=== PATIENT | female | born 1930 | race Caucasian/White ===

== ENCOUNTER 2017-07-04 15:20 | Emergency (ER) | payer OTHER, BC ==
[~2017-07-04] VITALS: Ht 175.3 cm; Wt 78.1 kg
[2017-07-04 15:29] VITALS: TEMP 36.6; Ht 175.3 cm; Wt 78.1 kg
--- NOTE | 2017-07-04 16:03 | DIAGNOSTIC IMAGING REPORT ---
HEAD WITHOUT CONTRAST (CT) CLINICAL HISTORY: 86 years-old Female with fall, head injury, facial contusions. Acute head injury status post fall TECHNIQUE: Multiple axial CT images of the head were obtained without contrast. A dose lowering technique was utilized adhering to the principles of ALARA. CT DOSE: 788.63 mGycm COMPARISON: CT maxillofacial same day. FINDINGS: No acute intracranial hemorrhage, midline shift, intracranial mass, hydrocephalus, territorial ischemia or abnormal extra-axial collection. Moderate atrophy with moderate degree of ill-defined low-attenuation within the white matter of the cerebral hemispheres bilaterally suggesting chronic microvascular ischemic changes. Senescent calcifications of the basal ganglia. Cerebral vascular calcifications are seen at the level of the skull base. The calvarium is intact. The paranasal sinuses, mastoid air cells, and middle ear cavities are clear. Acute fracture of the left orbital floor is noted along with acute fracture of the left anterior nasal process and medial wall of the right maxillary sinus. Layering blood products are seen within the bilateral maxillary and ethmoid sinuses. Acute fracture of the posterior left maxillary wall also noted. IMPRESSION: 1. No acute intracranial abnormality or calvarial fracture. 2. Multiple facial bone fractures as above with layering hemorrhage within the paranasal sinuses.. Please see CT maxillofacial study of same day for further details. The above report was generated using voice recognition software. It may contain grammatical, syntax or spelling errors. Electronically signed by: Eldon Gross M.D. 07/04/2017 4:02 PM Dictated Date/Time: 07/04/2017 3:58 PM
--- NOTE | 2017-07-04 16:12 | DIAGNOSTIC IMAGING REPORT ---
FACIAL BONES-MXILLOFAC WITHOUT CLINICAL HISTORY: 86 years-old Female presenting with fall, head injury, facial contusions. TECHNIQUE: Multidetector CT of the face was performed without the use of intravenous contrast. IV contrast: None. A dose lowering technique was used consistent with the principles of ALARA (as low as reasonably achievable). COMPARISON: None. CT DOSE (mGy.cm): The estimated cumulative dose is 561.29 mGycm. FINDINGS: Paper Folding Machine Operator topogram: Unremarkable. Left premaxillary and left periorbital soft tissue swelling and subcutaneous infiltration consistent with contusion. Hyperdensity aerated and layering fluid noted in the bilateral maxillary sinuses. Similar fluid also noted to a lesser extent in left ethmoid air cells. This consistent with hemorrhage by density. Degenerative changes of the temporomandibular joints, which remain congruent. No mandibular fracture. Deviation of the bony nasal septum, which may be chronic. Bilateral fractures of the pterygoid plates, which are more comminuted on the left. Bilateral [place] lenses are absent. Small amount of left intraorbital extraconal hematoma. No herniation of intraorbital fat inferiorly though slight herniation of orbital fat is noted medially. Inferior and medial left orbital fractures. No significant deformation of the intraorbital muscles. Mildly comminuted fractures of the anterior, lateral, and medial left maxillary sinus avelar. The piriform aperture is fractured on the right Minimally displaced fracture of the lateral and anterior avelar of the right maxillary sinus. Limited intracranial violation demonstrates age-related volume loss and chronic small vessel ischemic change. IMPRESSION: 1. Findings consistent with right fátima-LeFort type I and left fátima-LeFort type II facial fractures. 2. Left medial and inferior orbital fractures with herniation of medial fat. No deformation of the intraorbital muscles to suggest entrapment. Correlate clinically. Small left intraorbital hematoma. 3. Extensive hemorrhage in the maxillary sinuses. Electronically signed by: Bc Curry M.D. 07/04/2017 4:11 PM Dictated Date/Time: 07/04/2017 4:00 PM
[2017-07-04] MEDS ORDERED: OMEP-334 PO (17:04)
[2017-07-04] MEDS ORDERED: ASPI81TA28 PO (17:04)
[2017-07-04] MEDS ORDERED: RIVA1.5T PO (17:04)
[2017-07-04] MEDS ORDERED: METO100T44 PO (17:04)
[2017-07-04] MEDS ORDERED: HYZ/10015 PO (17:04)
[2017-07-04] MEDS ORDERED: AMLO2.5T PO (17:04)
[2017-07-04] MEDS ORDERED: LEVO125T5 PO (17:04)
[2017-07-04] MEDS ORDERED: CTP/1 PO (17:04)
[2017-07-04] MEDS ORDERED: ATOR10TA82 PO (17:04)
[2017-07-04] MEDS ORDERED: CALC1CAP36 PO (17:04)
[2017-07-04] MEDS ORDERED: LIDOCAINE 1% BUFFERED INJ 5 ML VIAL INFIL ONE (17:30)
--- NOTE | 2017-07-04 18:22 | EMERGENCY ROOM VISIT NOTE ---
ED Visit Note First contact with patient: 15:27 Patient was seen by our PA/STAFFING RN. I was involved in the patient's care and did evaluate the patient myself. I was involved in the care throughout the ER stay. Patient presents after falling. She does not have evidence for intracranial bleeding by CT. There are facial fractures noted. Her face is contused and she has a slight amount of bleeding from her nose. The facial films were reviewed by the maxillofacial surgeon speech correction consultant. Patient was felt stable for discharge. She did want to follow-up in her hometown, she is visiting the [place] area. She will be discharged on Augmentin. Her blood pressure is high here but she is worried. She also missed her nighttime blood pressure medication. She is on Xarelto and will be holding this medication for several days to lessen her chance of bleeding.
[2017-07-04] MEDS ORDERED: NORCO 5/325MG HOME PACK PO ONE (18:45)
[2017-07-04] MEDS ORDERED: AMOXICIL/CLAVU 875MG HOME PACK PO ONE (18:45)
[2017-07-04] MEDS ORDERED: AMOX875T PO ×2 (19:21→19:27)
[2017-07-04] MEDS ORDERED: HYDR-5688 PO (19:21)
--- NOTE | 2017-07-04 19:28 | EMERGENCY ROOM VISIT NOTE ---
History First contact with patient: 15:27 Chief Complaint: FALL Stated Complaint: Tripped/fall, facial contusion/nose bleed History of Present Illness The patient is a 86 year old female who presents to the Emergency Room via BLS with complaints of a fall and facial injuries. The patient states that she was walking downtown when she tripped over an uneven area of sidewalk and fell, striking her face. She did not lose consciousness. The fall was mechanical and not associated with any dizziness/lightheadedness. The patient had initially a large amount of bleeding from the nose. She states that that has slowed down. She now has swelling surrounding the left eye. She rates her overall discomfort a 1/10. She describes her pain as dull. She denies any neck pain. She denies any vision changes or difficulty opening her mouth. She denies any other injuries. She does take Xarelto for a history of A fib. Her tetanus is up-to-date. Review of Systems A complete 10 point review of systems was reviewed with the patient with pertinent positives and negatives as per history of present illness. All else were negative. Past Medical/Surgical History Medical Problems: (1) Atrial fibrillation (2) Hypertension Social History Smoking Status: Never Smoker Housing Status: lives with family Current/Historical Medications Scheduled Amlodipine (Norvasc), 2.5 MG PO BID Amoxicillin & Pot Clavulanate (Augmentin 875-125 mg), 1 TAB PO BID Aspirin (Aspirin Ec), 81 MG PO 2XWK Atorvastatin (Lipitor), 10 MG PO HS Calcitriol (Calcitriol), 0.25 MCG PO Q2D Clonidine Hcl (Catapres), 0.1 MG PO TID Hctz/Losartan (Hyzaar 25MG/100MG), 1 TAB PO DAILY Levothyroxine Sodium (Levothyroxine Sodium), 125 MCG PO DAILY Metoprolol Succ (Toprol Xl) (Toprol-Xl ), 100 MG PO BID Omeprazole (Omeprazole Dr), 40 MG PO DAILY Rivaroxaban (Xarelto), 15 MG PO QDD Scheduled PRN Hydrocodone/Acetaminophen 5MG/325MG (Arabi 5MG/325MG), 1 TABLET PO Q4H PRN for Pain Physical Exam Vital Signs Date Time Temp Pulse Resp B/P (MAP) Pulse Ox O2 Delivery O2 Flow Rate FiO2 07/04/17 20:02 93 16 178/101 95 07/04/17 18:51 89 16 183/109 93 Room Air 07/04/17 17:06 88 20 224/102 94 Room Air 07/04/17 16:34 93 18 226/125 94 Room Air 07/04/17 15:29 36.6 87 18 202/113 92 Room Air Physical Exam VITALS: Vitals are noted on the nurse's note and reviewed by myself. GENERAL: This is an 86-year-old female, in no acute distress, well-developed well-nourished. SKIN: Significant soft tissue swelling noted to the left periorbital region. There is a 2 cm laceration to the left upper lip with mild active bleeding. HEAD: Normocephalic atraumatic. EARS: External auditory canals clear, tympanic membranes pearly luz without erythema or effusion bilaterally. No hemotympanum. EYES: Left periorbital edema and ecchymosis. Pupils equal round and reactive to light and accommodation. Extraocular movements intact. NOSE: No obvious deformity. No active bleeding from the nose. Small amount of dried blood in the right nare. MOUTH: Left upper front tooth is chipped. Upper lip laceration as described in the skin section. NECK: Supple without nuchal rigidity. Cervical spine is nontender. HEART: Regular rate and rhythm without murmurs gallops or rubs. LUNGS: Clear to auscultation bilaterally without wheezes, rales or rhonchi. MUSCULOSKELETAL: Strength 5/5 throughout. NEURO: Patient was alert and oriented to person place and time. No focal neurological deficits. Medical Decision & Procedures ER Provider Diagnostic Interpretation: HEAD WITHOUT CONTRAST (CT) IMPRESSION: 1. No acute intracranial abnormality or calvarial fracture. 2. Multiple facial bone fractures as above with layering hemorrhage within the paranasal sinuses.. Please see CT maxillofacial study of same day for further details. FACIAL BONES-MXILLOFAC WITHOUT FINDINGS: Rivet Hammer Machine Operator topogram: Unremarkable. Left premaxillary and left periorbital soft tissue swelling and subcutaneous infiltration consistent with contusion. Hyperdensity aerated and layering fluid noted in the bilateral maxillary sinuses. Similar fluid also noted to a lesser extent in left ethmoid air cells. This consistent with hemorrhage by density. Degenerative changes of the temporomandibular joints, which remain congruent. No mandibular fracture. Deviation of the bony nasal septum, which may be chronic. Bilateral fractures of the pterygoid plates, which are more comminuted on the left. Bilateral [place] lenses are absent. Small amount of left intraorbital extraconal hematoma. No herniation of intraorbital fat inferiorly though slight herniation of orbital fat is noted medially. Inferior and medial left orbital fractures. No significant deformation of the intraorbital muscles. Mildly comminuted fractures of the anterior, lateral, and medial left maxillary sinus avelar. The piriform aperture is fractured on the right Minimally displaced fracture of the lateral and anterior avelar of the right maxillary sinus. Limited intracranial violation demonstrates age-related volume loss and chronic small vessel ischemic change. IMPRESSION: 1. Findings consistent with right fátima-LeFort type I and left fátima-LeFort type II facial fractures. 2. Left medial and inferior orbital fractures with herniation of medial fat. No deformation of the intraorbital muscles to suggest entrapment. Correlate clinically. Small left intraorbital hematoma. 3. Extensive hemorrhage in the maxillary sinuses. Medications Administered Medications (Trade) Dose Ordered Sig/Tory Route Start Time Stop Time Status Last Admin Dose Admin Amoxicillin/ Clavulanate Potassium (Augmentin 875MG Home Pack) 1 homepack UD ONCE PO 07/04/17 18:45 5 18:46 DC 07/04/17 19:41 1 HOMEPACK Acetaminophen/ Hydrocodone Bitart (Arabi 5/325mg Home Pack) 1 homepack UD ONCE PO 07/04/17 18:45 07/04/17 18:46 DC 07/04/17 19:41 1 HOMEPACK Procedure Verbal consent was obtained to perform the procedure. The area was sterilely draped. 1 ml of 1% buffered lidocaine was used to anesthetize the upper lip laceration. Once the patient was anesthetized, the wound was cleansed with sterile saline. The laceration was repaired using 3 simple interrupted 6-0 absorbable gut sutures with the wound edges being well approximated. The patient tolerated the procedure well. Hemostasis was achieved. ED Course The patient was evaluated as above. CT scans were obtained and read by radiology as above. The case was discussed with Dr. Veras of maxillofacial surgery. He was able to review the CT imaging and feels that the fractures are well aligned and stable. He does not see any need for emergent surgical intervention. Findings were discussed with the patient and family at length. Multiple questions were answered regarding the findings and treatment plan. Repair of the lip laceration was performed as noted in the procedure section. Findings and treatment plan were once more discussed with the patient and family members. The patient was given something to eat and drink and tolerated this well. Discharge instructions were reviewed with the patient. The patient verbalized understanding of my assessment and treatment plan and was discharged home in good condition. Medical Decision Differential diagnosis includes subdural hematoma, epidural hematoma, subarachnoid bleed, facial bone fractures, C-spine fracture, among others. The patient was evaluated as above. CT imaging was performed of the head and facial bones. This did show multiple facial bone fractures, including LeFort fractures and left orbital fractures. Dr. Veras, the maxillofacial surgeon was able to review the imaging and felt that the patient did not need any emergent surgical intervention. The patient is from [place] and would like to follow-up at home if possible. I did speak to family members there regarding the treatment plan and recommended that they contact both a maxillofacial surgeon and construction sales representative to schedule close follow-up. The patient was given discs of her images. She will hold her Xarelto for 3 days. She will be placed on Augmentin and was given Arabi for pain. Maxillofacial precautions were discussed with the patient. She is to keep a pured diet. She did have a lip laceration which was repaired with absorbable suture. She had some mild epistaxis on arrival, however this improved with time and there was no active bleeding at time of discharge. Patient was hypertensive, although this is expected given the extent of her injury. Return precautions were discussed with the patient. I reevaluate the patient multiple times throughout her stay and answered questions of multiple family members. The patient was given a cane for added stability on discharge. She is aware that she may return at any time if she has any new/concerning symptoms or other concerns. The patient was independently evaluated by Dr. Pena, ED attending physician, who agreed with my assessment and treatment plan. [place] Drug Monitoring Program Search Results: patient reviewed within database, no issues identified Head Trauma GCS Score: 15 Medication Reconcilliation Current Medication List: was personally reviewed by me Blood Pressure Screening Patient's blood pressure: Elevated blood pressure Blood pressure disposition: Elevated BP felt to be situational Impression Primary Impression: LeFort I fracture Additional Impressions: LeFort II fracture Orbital fracture Laceration of lip Fall Closed head injury Departure Information Dispostion Home / Self-Care Prescriptions Amoxicillin & Pot Clavulanate (Augmentin 875-125 mg) 1 Tab Tab 1 TAB PO BID for 7 Days, #14 TAB Prov: Naz Lemon PA-C 07/04/17 Hydrocodone/Acetaminophen 5MG/325MG (Arabi 5MG/325MG) Tab 1 TABLET PO Q4H Y for Pain, #15 TAB For Initial Treatment Prov: Naz Lemon PA-C 07/04/17 Referrals No Doctor, Assigned (PCP) Patient Instructions My [facility] Additional Instructions You were treated today for facial bone fractures, particularly a left infraorbital fracture and fractures of the maxilla. CT scan showed no bleeding in your brain. It will be very important for you to follow-up with specialists when you return home. You will need to see a maxillofacial surgeon on Saturday or Saturday. You should also schedule a follow-up appointment with your construction sales representative (eye doctor). Do not take the Xarelto (blood thinner) for the next 3 days. You may restart this on Saturday. For pain control, you can use the following [id number] medicines (if >12 yo): - Regular strength (325mg/tab) Tylenol (acetaminophen) 2 tabs every 4-6 hours as needed. Do not exceed 12 tablets in a 24 hour period. Avoid taking more than 4 grams (4000 mg) of Tylenol per day. This includes any other sources of acetaminophen you may take on a regular basis. You have been prescribed Arabi to be used for pain control. Take 1 tablet every 4-6 hours as needed for pain. If you have not taken this medication before, you may want to start by taking one half a pill at a time to see how you react to it. This is a narcotic medication. You cannot drive or consume alcohol while on this medicine. This medicine should only be used for pain that cannot be controlled with [id number] pain medicines. Taking this medication with a small amount of food can help to minimize side effects. Apply ice to the face frequently to help with swelling. You were prescribed Augmentin to be taken twice daily as prescribed. This is an antibiotic. All antibiotics have the potential to cause diarrhea. Stop this medication and contact a medical provider if you were to develop any significant adverse side effects including: wheezing, shortness of breath, passing out, vomiting, or a diffuse rash. Always take antibiotics as directed and COMPLETE the ENTIRE course regardless of the improvement of your symptoms. Do not blow your nose. Try not to touch the nostrils as much as possible. If you do have a small amount of recurrent bleeding, you may place some gauze in the nose. You need to keep a liquid/pured diet until follow-up with maxillofacial surgery. This can include foods like applesauce and yogurt, but nothing that you have to chew. You did receive 3 dissolvable sutures in your lip. These will dissolve/fall out on their own in several days. Return to the closest emergency department if you have a severe onset of headache, passing out, vomiting, heavy bleeding from the nose, or other new/ concerning symptoms. Problem Qualifiers Primary Impression: LeFort I fracture Encounter type: initial encounter Fracture type: closed Qualified Codes: S02.411A - Lefort i fracture, initial encounter for closed fracture Additional Impressions: LeFort II fracture Encounter type: initial encounter Fracture type: closed Qualified Codes: S02.412A - Lefort ii fracture, initial encounter for closed fracture Orbital fracture Encounter type: initial encounter Fracture type: closed Qualified Codes: S02.80XA - Fracture of other specified skull and facial bones, unspecified side , initial encounter for closed fracture Laceration of lip Encounter type: initial encounter Qualified Codes: S01.511A - Laceration without foreign body of lip, initial encounter Fall Encounter type: initial encounter Qualified Codes: W19.XXXA - Unspecified fall, initial encounter Closed head injury Encounter type: initial encounter Qualified Codes: S09.90XA - Unspecified injury of head, initial encounter
[2017-07-04 20:02] VITALS: BP 178/101; PULSE 93; O2SAT 95
== END 2017-07-04 20:05 | disposition home or self-care (01) ==
LOC: C.EDA 15:22
DX: S01.511A Laceration without foreign body of lip, initial encounter (principal); S02.411A LeFort I fracture, initial encounter for closed fracture; S02.412A LeFort II fracture, initial encounter for closed fracture; S02.82XA Fracture of other specified skull and facial bones, left side, initial encounter for closed fracture; S09.90XA Unspecified injury of head, initial encounter; W22.8XXA Striking against or struck by other objects, initial encounter; Y92.480 Sidewalk as the place of occurrence of the external cause; I48.91 Unspecified atrial fibrillation; I10 Essential (primary) hypertension; Z79.01 Long term (current) use of anticoagulants; Z79.82 Long term (current) use of aspirin; Z79.899 Other long term (current) drug therapy